=== PATIENT | male | born 1995 | race African-American/Black ===

== ENCOUNTER → 2024-11-05 | Outpatient (CLI) | payer BC ==
[2024-11-05 12:33] LABS: Hematocrit 46.1 % (41.0-53.0); Hemoglobin 15.6 g/dL (13.5-17.5); Mean Corpuscular Hemoglobin 28.1 pg (28.0-32.0); Mean Corpuscular Volume 83.2 fL (80.0-100.0); Nucleated Red Blood Cells % 0.1 %
[2024-11-05 13:39] LABS: Alanine Aminotransferase 15 U/L (7-40); Albumin 4.6 g/dL (3.2-4.8); Alkaline Phosphatase 63 U/L (46-116); Anion Gap 7 (5-15); BUN/Creatinine Ratio 17.3 (10.0-20.0); Bilirubin, Total 0.8 mg/dL (0.2-1.0); Blood Urea Nitrogen 14 mg/dL (9-23); Calcium 9.7 mg/dL (8.7-10.4); Carbon Dioxide 30 mmol/L (20-31); Chloride 105 mmol/L (98-107); Cholesterol 172 mg/dL (< 200); Potassium 4.6 mmol/L (3.5-5.1); Sodium 142 mmol/L (136-145); Total Protein 7.5 g/dL (5.7-8.2); Triglycerides 61 mg/dL (< 150)
[2024-11-05 13:40] LABS: Glucose 130 mg/dL (74-106); HDL Cholesterol 75 mg/dL (40-59)
[2024-11-05 13:41] LABS: Free T4 (Free Thyroxine) 1.01 ng/dL (0.89-1.76)
[2024-11-05 13:42] LABS: Urine Protein, UAD Negative (Negative)
== END | disposition home or self-care (01) ==
LOC: LAB 12:14
PROVIDERS: ATTEND Internal Medicine
DX: Z01.812 Encounter for preprocedural laboratory examination (principal); E10.40 Type 1 diabetes mellitus with diabetic neuropathy, unspecified
CPT/HCPCS: 36415; 80053; 80061; 81001; 82043; 82607; 84439; 84443; 85025; 85652